=== PATIENT | female | born 1975 | race Caucasian/White ===

== ENCOUNTER 2020-01-25 09:30 | Inpatient (IN) | payer MEDICAID, OTHER ==
[~2020-01-25] VITALS: Ht 160 cm; Wt 56.7 kg
[2020-01-25] MEDS ORDERED: SODIUM CHLORIDE 0.9% 1,000 ML IV ONE ×2 (09:46)
[2020-01-25] MEDS ORDERED: NALOXONE HCL 0.4 MG/ML VIAL ONE (09:59)
[2020-01-25] MEDS ORDERED: PROCHLORPERAZINE EDISYLATE 5 MG/ML 2ML VIAL IV ONE (10:00)
[2020-01-25] MEDS ORDERED: NALOXONE HCL 0.4 MG/ML VIAL IV ONE (10:00)
[2020-01-25 10:18] LABS: Basophils # (auto) 0.1 10 ^3/uL (0-0.2); Basophils % (auto) 0.9 % (0.0-2.0); Eosinophils # (auto) 0 10 ^3/uL (0-0.8); Eosinophils % (auto) 0.4 % (0.0-7.0); Hematocrit 40.9 % (36.0-46.0); Lymphocytes # (auto) 1.2 10 ^3/uL (0.4-5.4); Lymphocytes % (auto) 17.6 % (10.0-50.0); Mean Corpuscular Hemoglobin 31.3 pg (28.0-32.0); Mean Corpuscular Hgb Conc. 34.2 g/dL (32.0-36.0); Mean Corpuscular Volume 91.4 fL (80.0-100.0); Monocytes # (auto) 0.7 10 ^3/uL (0-1.3); Monocytes % (auto) 10.6 % (0.0-12.0); Neutrophils # (auto) 4.6 10 ^3/uL (1.6-8.6); Neutrophils % (auto) 70.5 % (37.0-80.0); Nucleated Red Blood Cells % 0.1 %; Platelet Count (auto) 247 10^3/uL (140-450); Red Blood Cells 4.47 10^6/uL (4.0-5.20); Red Cell Distribution Width 13.5 % (11.8-14.3); White Blood Cell 6.5 10^3/uL (4.4-10.8)
[2020-01-25 10:31] LABS: Albumin 3.8 g/dL (3.4-5.0); Calcium 9.4 mg/dL (8.5-10.1); Potassium 3.4 mmol/L (3.5-5.1)
[2020-01-25 10:36] LABS: BUN/Creatinine Ratio 14.4; Bilirubin, Total 0.4 mg/dL (0.2-1.0); Total Protein 7.4 g/dL (6.4-8.2)
[2020-01-25] MEDS ORDERED: ENOXAPARIN SOD 60 MG/0.6 ML SYRINGE SC ONE (14:15)
[2020-01-25] MEDS ORDERED: POTASSIUM EFFERVESENT TAB 25 MEQ PO ONE (14:30)
[2020-01-25] MEDS ORDERED: NITROGLYCERIN 0.4 MG SL TAB SL PRN (15:30)
[2020-01-25] MEDS ORDERED: ATORVASTATIN 20 MG TAB PO ONE (15:30)
[2020-01-25] MEDS ORDERED: ACETAMINOPHEN 325 MG TAB PO PRN (15:30)
[2020-01-25] MEDS ORDERED: MORPHINE SULF INJ 2 MG/ML SYRINGE 1ML IV PRN (15:30)
[2020-01-25] MEDS ORDERED: HYDROcodone-ACET 5/325MG TAB PO PRN (15:30)
--- NOTE | 2020-01-25 17:00 | NUR ---
Patient transferred to unit in stable condition. Denies any pain at this time.
[2020-01-25 18:25] LABS: Urine Bacteria FEW /hpf (None Seen); Urine Blood Negative /uL (Negative); Urine Mucus FEW (None Seen); Urine WBC 7 /hpf (0 - 5)
[2020-01-25 18:35] LABS: Alcohol, Urine < 3.0 mg/dL (0-10); Barbiturate Scree,Urine NEGATIVE (NEGATIVE); Benzodiazephine Screen, Urine NEGATIVE (NEGATIVE); Cocaine Screen, Urine NEGATIVE (NEGATIVE); Opiate Scree,Urine NEGATIVE (NEGATIVE); Phencyclidine Screen, Urine NEGATIVE (NEGATIVE)
[2020-01-25 18:48] LABS: Amphetamine Screen, Urine POSITIVE (NEGATIVE); Cannabinoid Screen, Urine POSITIVE (NEGATIVE)
--- NOTE | 2020-01-25 19:30 | NUR ---
Opening Shift Note Assumed care of patient, awake and alert x4. No S/S of distress/SOB or pain. Call light is within reach, side rails up x2, bed is in the lowest position. Instructed on POC and to call for assist PRN, will continue to monitor for changes Q1hr and PRN.
[2020-01-25 22:00] VITALS: BP 104/64
--- NOTE | 2020-01-25 23:10 | NUR ---
Patient's son called for an update, password provided, all questions and concerns answered.
[2020-01-26 05:00] VITALS: BP 118/68
[2020-01-26 06:22] LABS: Basophils # (auto) 0.1 10 ^3/uL (0-0.2); Eosinophils # (auto) 0.1 10 ^3/uL (0-0.8); Eosinophils % (auto) 1.7 % (0.0-7.0); Hematocrit 40.7 % (36.0-46.0); Hemoglobin 13.5 g/dL (12.2-16.2); Lymphocytes # (auto) 1.6 10 ^3/uL (0.4-5.4); Lymphocytes % (auto) 22.5 % (10.0-50.0); Mean Corpuscular Hemoglobin 31.3 pg (28.0-32.0); Mean Corpuscular Hgb Conc. 33.3 g/dL (32.0-36.0); Monocytes # (auto) 0.7 10 ^3/uL (0-1.3); Monocytes % (auto) 9.4 % (0.0-12.0); Neutrophils # (auto) 4.5 10 ^3/uL (1.6-8.6); Neutrophils % (auto) 65.4 % (37.0-80.0); Platelet Count (auto) 222 10^3/uL (140-450); Red Blood Cells 4.32 10^6/uL (4.0-5.20); Red Cell Distribution Width 13.3 % (11.8-14.3); White Blood Cell 6.9 10^3/uL (4.4-10.8)
[2020-01-26 06:37] LABS: Calcium 8.6 mg/dL (8.5-10.1); Magnesium 2.3 mg/dL (1.6-2.6); Potassium 3.9 mmol/L (3.5-5.1)
[2020-01-26 06:39] LABS: BUN/Creatinine Ratio 12.8
[2020-01-26 08:15] VITALS: BP 108/59
--- NOTE | 2020-01-26 08:15 | NUR ---
Patient resting comfortably in bed, eating breakfast. Denies any pain at this time. Patient stable.
[2020-01-26 09:00] VITALS: BP 108/59
--- NOTE | 2020-01-26 09:36 | NUR ---
Patient resting quietly in bed; watching TV. Scheduled po medications given per order. Patient stable.
--- NOTE | 2020-01-26 09:53 | NUR ---
Assessment Regarding social service consult for substance abuse. Patient is a 44-year-old female who is alert and oriented. Prior to admission patient lived home with family and functioned independently. Patient can care for her own ADL's. Patient stated she does not need any medical equipment now. Patient will return to her prior living arrangements post discharge and family will transport her home. Patient refused resource for substance abuse. Informed Patient she has a right to participate in all discharge planning. Patient verbalized understanding discharge plan. Addendum: 01/26/20 at 0956 by NICHOL LOWERY Amended: Links added.
[2020-01-26] MEDS ORDERED: ASPirin 81 mg TAB PO SCH (10:00)
--- NOTE | 2020-01-26 11:10 | NUR ---
Patient asleep with no distress noted.
--- NOTE | 2020-01-26 12:30 | NUR ---
Patient resting quietly in bed with no complaint of pain or discomfort. Patient stable at this time.
[2020-01-26 13:00] VITALS: BP 93/52
--- NOTE | 2020-01-26 14:40 | NUR ---
Patient stable at this time; resting comfortably in bed.
--- NOTE | 2020-01-26 15:45 | NUR ---
Patient resting comfortably in bed with Dr. Pelletier at bedside. Patient stable.
[2020-01-26 17:00] VITALS: BP 100/60
--- NOTE | 2020-01-26 17:30 | NUR ---
Patient resting comfortably in bed with no complaint of pain at this time. Patient stable.
[2020-01-26 18:00] VITALS: BP 98/52
--- NOTE | 2020-01-26 18:45 | NUR ---
Discharge instructions Both written and verbal discharge instructions given to patient. Patient verbalized understanding of instructions. All belongings with patient. Patient stable at this time.
--- NOTE | 2020-01-26 19:00 | NUR ---
Discharge Peripheral IV removed intact with no active bleeding. Patient tolerated well. Patient discharged to home in stable condition.
== END 2020-01-26 19:00 | disposition home or self-care (01) | DRG 198 ==
LOC: EDBD 09:30 → ER 09:30 → TELE 09:31 → TELE-WESTW 16:58
PROVIDERS: ADMIT Internal Medicine; ATTEND Internal Medicine
DX: I24.8 Other forms of acute ischemic heart disease (principal); E86.0 Dehydration; E87.6 Hypokalemia; F12.90 Cannabis use, unspecified, uncomplicated; F17.210 Nicotine dependence, cigarettes, uncomplicated
CPT/HCPCS: 36415; 70450; 71045; 74176; 80048; 80053; 80307; 81001; 83690; 83735; 84484; 85025; 93005; 93306; G0378